=== PATIENT | male | born 1980 | race Caucasian/White ===

== ENCOUNTER 2017-01-06 11:47 | Emergency (ER) | payer BC, OTHER ==
[2017-01-06] MEDS ORDERED: IBUPROFEN 600 MG TABLET PO ONE (12:18)
--- NOTE | 2017-01-06 12:18 | Emergency Department Record ---
History of Present Illness - General Chief complaint: Cold Stated complaint: FEVER,CONGESTION,H/A Time Seen by Provider: 01/06/17 12:11 Source: Patient Mode of Arrival: Ambulatory Limitations: No limitations - History of Present Illness Initial comments: 36 yo male presents with sore throat, fever, and cough since . The cough has been productive but he has hot seen the sputum. NO NVD. NO rash. He is eating and drinking but the throat hurts to cough or swallow. No voice changes. He is a smoker. MD complaint: Sore throat, Other Onset/Timin -: Days(s) Location: Throat Severity: Moderate Severity scale (1-10): 7 Quality: Burning Consistency: Constant Improves with: None Worsens with: None Associated Symptoms: Pain with swallowing, Rhinorrhea, Sore throat - Related Data Previous Rx's Medication Instructions Recorded Azithromycin [Zithromax] 250 mg PO DAILY #6 tab 01/06/17 Allergies Allergy/AdvReac Type Severity Reaction Status Date / Time No Known Drug Allergies Allergy Verified 01/06/17 12:00 Travel Screening - Travel/Exposure Within Last 30 Days Have you traveled within the last 30 days?: No Review of Systems Constitutional: Reports: Fever. Denies: Chills, Malaise, Night sweats, Weakness Eyes: Denies: Eye discharge, Eye pain, Photophobia, Vision change ENT: Reports: Congestion, Throat pain. Denies: Epistaxis Respiratory: Reports: Cough. Denies: Dyspnea, Hemoptysis, Stridor, Wheezes Cardiovascular: Denies: Chest pain, Palpitations, Syncope Endocrine: Denies: Fatigue Gastrointestinal: Denies: Abdominal pain, Diarrhea, Nausea, Vomiting Genitourinary: Denies: Dysuria, Frequency Musculoskeletal: Denies: Arthralgia, Back pain, Myalgia, Neck pain Skin: Denies: Bruising, Change in color, Rash Neurological: Denies: Headache, Numbness, Weakness Psychiatric: Denies: Anxiety Hematological/Lymphatic: Denies: Blood Clots, Easy bleeding, Easy bruising, Swollen glands Past Medical History - SOCIAL HISTORY Smoking Status: Light tobacco smoker (<10/day) Alcohol Use: None Drug Use: None - RESPIRATORY Hx Respiratory Disorders: No - CARDIOVASCULAR Hx Cardio Disorders: No - NEURO Hx Neuro Disorders: No - GI Hx GI Disorders: No - Hx Genitourinary Disorders: No - ENDOCRINE Hx Endocrine Disorders: No - MUSCULOSKELETAL Hx Musculoskeletal Disorders: No - PSYCH Hx Psych Problems: No - HEMATOLOGY/ONCOLOGY Hx Hematology/Oncology Disorders: No Family Medical History Any Significant Family History?: No Physical Exam - General General Appearance: Alert, Oriented x3, Cooperative, No acute distress, Other ( No ill appearing, no acute distress) Limitations: No limitations - Head Head exam: Normal inspection - Eye Eye exam: Normal appearance. negative: Conjunctival injection, Periorbital swelling - ENT ENT exam: Mucous membranes moist, Normal external ear exam. negative: Mucous membranes dry, Normal orophraynx Ear exam: Normal external inspection. negative: External canal tenderness Nasal Exam: Normal inspection. negative: Discharge, Sinus tenderness Mouth exam: Normal external inspection, Tongue normal Teeth exam: Normal inspection. negative: Dental caries Throat exam: Tonsillar erythema, Tonsillomegaly, Other (no abascess, no shift). negative: Tonsillar exudate, R peritonsillar mass, L peritonsillar mass - Neck Neck exam: Normal inspection, Full ROM, Lymphadenopathy (mild anterior cervical soft and mobile) - Respiratory Respiratory exam: Decreased breath sounds (left greater than right). negative: Respiratory distress - Cardiovascular Cardiovascular Exam: Regular rate, Normal rhythm, Normal heart sounds - GI/Abdominal GI/Abdominal exam: Soft. negative: Tenderness - Rectal Rectal exam: Deferred - exam: Deferred - Extremities Extremities exam: Normal inspection, Full ROM, Normal capillary refill. negative: Pedal edema, Tenderness - Back Back exam: Reports: Normal inspection, Full ROM. Denies: Muscle spasm, Rash noted, Tenderness - Neurological Neurological exam: Alert, Normal gait, Oriented X3 - Psychiatric Psychiatric exam: Normal affect, Normal mood - Skin Skin exam: Dry, Intact, Normal color, Warm Course Vital Signs 01/06/17 11:52 Temperature 100.9 F H Pulse Rate 95 H Respiratory 20 Rate Blood Pressure 141/96 Pulse Ox 97 - Reevaluation(s) Reevaluation #1: Strep screen ordered and CXR 01/06/17 12:20 Reevaluation #2: The strep screen is negative 01/06/17 12:35 Reevaluation #3: The XR was reviewed by me No acute process 01/06/17 13:00 Disposition Disposition: Discharge Clinical Impression: Tonsillitis, Bronchitis Disposition: Home, Self-Care Condition: (1) Good Instructions: Acute Bronchitis (ED), Tonsillitis (ED) Additional Instructions: Rest and stay well hydrated Return in the next 1-3 days if not improving, or any new concerns Return immediately if worse, short of breath Tylenol or Motrin for fever or discomfort Zithromax as directed Prescriptions: Azithromycin [Zithromax] 250 mg PO DAILY #6 tab Forms: Patient Portal Access Time of Disposition: 13:02 Quality - Quality Measures Quality Measures: Upper Respiratory Infection - Blood Pressure Screening View Details: Yes Blood Pressure Classification: Hypertensive Reading Systolic Measurement: 141 Diastolic Measurement: 96 Screening for High Blood Pressure: < Pre-Hypertensive BP, F/U Documented > [ G8950] Pre-Hypertensive Follow-up Interventions: Referral to alternative/primary care provider.
[2017-01-06] MEDS ORDERED: DEXAMETHASONE SOD PHOSPHATE 10MG/ML VIAL PO ONE (12:22)
--- NOTE | 2017-01-08 13:11 | RADIOLOGY REPORT ---
EXAM: CHEST, TWO VIEWS HISTORY: COUGH. TECHNIQUE: Frontal and lateral views of the chest were obtained. Comparison: None. FINDINGS: The heart size is normal. The lungs are clear. No pneumothorax. IMPRESSION: NEGATIVE CHEST EXAMINATION. JOB NUMBER: [id number] MTDD
== END 2017-01-06 13:14 | disposition home or self-care (01) ==
LOC: ER 11:47
DX: J20.9 Acute bronchitis, unspecified (principal); J03.90 Acute tonsillitis, unspecified; F17.210 Nicotine dependence, cigarettes, uncomplicated
CPT/HCPCS: 99283 ×2; 87880; 71020; J1100

== ENCOUNTER 2017-01-14 21:30 | Emergency (ER) | payer OTHER ==
--- NOTE | 2017-01-14 21:53 | Emergency Department Record ---
History of Present Illness - General Chief complaint: Abscess Stated complaint: SWOLLEN LUMP ON BACK RT. KNEE Time Seen by Provider: 01/14/17 21:53 Source: Patient Mode of Arrival: Ambulatory - History of Present Illness Initial comments: Bump behind right knee which now has redness surrounding it. No f,c,cp, jarod, hx of DVT, PE, or clotting abnormalities. MD complaint: Lesion Onset/Timin -: Hour(s) Location: RLE Severity scale (1-10): 4 Consistency: Constant Improves with: None Worsens with: Palpation Context: None Associated symptoms: Denies other symptoms Treatments Prior to Arrival: None - Related Data Previous Rx's Medication Instructions Recorded Cephalexin [Keflex] 500 mg PO QID #39 cap 01/14/17 Allergies Allergy/AdvReac Type Severity Reaction Status Date / Time No Known Drug Allergies Allergy Verified 01/06/17 12:00 Travel Screening - Travel/Exposure Within Last 30 Days Have you traveled within the last 30 days?: No - Travel Symptoms Symptom Screening: None Review of Systems Reviewed: No additional complaints except as noted below Constitutional: Reports: As per HPI. Denies: Chills, Fever, Malaise, Night sweats, Weakness, Weight change Eyes: Reports: As per HPI. Denies: Eye discharge, Eye pain, Photophobia, Vision change ENT: Reports: As per HPI. Denies: Congestion, Dental pain, Ear pain, Epistaxis , Hearing loss, Throat pain Respiratory: Reports: As per HPI. Denies: Cough, Dyspnea, Hemoptysis, Stridor, Wheezes Cardiovascular: Reports: As per HPI. Denies: Arrhythmia, Chest pain, Dyspnea on exertion, Edema, Murmurs, Orthopnea, Palpitations, Paroxysmal nocturnal dyspnea, Rheumatic Fever, Syncope Endocrine: Reports: As per HPI. Denies: Fatigue, Heat or cold intolerance, Polydipsia, Polyuria Gastrointestinal: Reports: As per HPI. Denies: Abdominal pain, Constipation, Diarrhea, Hematemesis, Hematochezia, Melena, Nausea, Vomiting Genitourinary: Reports: As per HPI. Denies: Dysuria, Frequency, Hematuria, Incontinence, Retention, Testicular pain, Testicular mass, Urgency Musculoskeletal: Reports: As per HPI. Denies: Arthralgia, Back pain, Gout, Joint swelling, Myalgia, Neck pain Skin: Reports: As per HPI. Denies: Bruising, Change in color, Change in hair/ nails, Lesions, Pruritus, Rash Neurological: Reports: As per HPI. Denies: Abnormal gait, Confusion, Headache, Numbness, Paresthesias, Seizure, Tingling, Tremors, Vertigo, Weakness Psychiatric: Reports: As per HPI. Denies: Anxiety, Auditory hallucinations, Depression, Homicidal thoughts, Suicidal thoughts, Visual hallucinations Hematological/Lymphatic: Reports: As per HPI. Denies: Anemia, Blood Clots, Easy bleeding, Easy bruising, Swollen glands Past Medical History - SOCIAL HISTORY Smoking Status: Light tobacco smoker (<10/day) - RESPIRATORY Hx Respiratory Disorders: No - CARDIOVASCULAR Hx Cardio Disorders: No - NEURO Hx Neuro Disorders: No - GI Hx GI Disorders: No - Hx Genitourinary Disorders: No - ENDOCRINE Hx Endocrine Disorders: No - MUSCULOSKELETAL Hx Musculoskeletal Disorders: No - PSYCH Hx Psych Problems: No - HEMATOLOGY/ONCOLOGY Hx Hematology/Oncology Disorders: No Family Medical History Any Significant Family History?: Yes Hx Cancer: Father, Mother, Grandparents Hx Diabetes: Grandparents Hx Heart Disease: Father Hx HTN: Mother *HTN Comment: high cholesterol Physical Exam - General General Appearance: Alert, Oriented x3, Cooperative, No acute distress - Head Head exam: Normal inspection - Eye Eye exam: Normal appearance, PERRL Pupils: Normal accommodation - ENT ENT exam: Normal exam, Mucous membranes moist, Normal external ear exam, Normal orophraynx, TM's normal bilaterally Ear exam: Normal external inspection. negative: External canal tenderness Nasal Exam: Normal inspection. negative: Discharge, Sinus tenderness Mouth exam: Normal external inspection, Tongue normal Teeth exam: Normal inspection. negative: Dental caries Throat exam: Normal inspection. negative: Tonsillar erythema, Tonsillar exudate - Neck Neck exam: Normal inspection, Full ROM. negative: Tenderness - Respiratory Respiratory exam: Normal lung sounds bilaterally. negative: Respiratory distress - Cardiovascular Cardiovascular Exam: Regular rate, Normal rhythm, Normal heart sounds - GI/Abdominal GI/Abdominal exam: Soft, Normal bowel sounds. negative: Tenderness - Rectal Rectal exam: Deferred - exam: Deferred - Extremities Extremities exam: Normal inspection, Full ROM, Normal capillary refill, Tenderness (tender tiny firm blue tinged sport behind right knee in region of multiple superficial varicosities. ? vein valve of superficial phlebitis vs. cellulitis localized around patellar space. No calf tenderness, no proximal lymphangitis.) - Back Back exam: Reports: Normal inspection, Full ROM. Denies: Muscle spasm, Rash noted, Tenderness - Neurological Neurological exam: Alert, Normal gait, Oriented X3, Reflexes normal - Psychiatric Psychiatric exam: Normal affect, Normal mood - Skin Skin exam: Dry, Intact, Normal color, Warm Course Vital Signs 01/14/17 21:36 Temperature 98.8 F Pulse Rate [ 65 Pulse Ox Probe] Respiratory 18 Rate Blood Pressure 142/89 [Left Arm] Pulse Ox 96 Medical Decision Making - Management Options MDM Management: No Additional Work-up Planned Disposition Disposition: Discharge Clinical Impression: Cellulitis of right lower leg Disposition: Home, Self-Care Condition: (1) Good Instructions: Cellulitis (ED), Superficial Thrombophlebitis (ED) Additional Instructions: Elevate leg above heart. Off work tomorrow, 01-15-17. Motrin 800 three times daily with food. Keflex 500 mg every 6 hours for 10 days until gone. Warm soaks to leg two to three times daily. Follow up with PCP this week for recheck of leg. Prescriptions: Cephalexin [Keflex] 500 mg PO QID #39 cap Quality - Quality Measures Quality Measures: N/A - Blood Pressure Screening Blood Pressure Classification: Pre-Hypertensive BP Reading Systolic Measurement: 142 Diastolic Measurement: 89 Screening for High Blood Pressure: < Pre-Hypertensive BP, F/U Documented > [ G8950] Pre-Hypertensive Follow-up Interventions: Follow-up with rescreen every year., Referral to alternative/primary care provider.
[2017-01-14] MEDS ORDERED: CEPHALEXIN 500 MG CAPSULE PO STA ×2 (22:01→22:02)
[2017-01-14] MEDS ORDERED: IBUPROFEN 200 MG TABLET PO ONE (22:02)
[2017-01-14] MEDS ORDERED: IBUPROFEN 400 MG TABLET PO ONE (22:09)
== END 2017-01-14 22:25 | disposition home or self-care (01) ==
LOC: ER 21:30
DX: L03.115 Cellulitis of right lower limb (principal)
CPT/HCPCS: 99282

== ENCOUNTER 2019-06-03 17:22 | Emergency (ER) | payer BC, OTHER ==
--- NOTE | 2019-06-03 17:32 | Emergency Department Record ---
History of Present Illness - General Chief complaint: Extremity Problem Stated complaint: RT LOWER LEG FOOT PAIN/SWELLING Time Seen by Provider: 06/03/19 17:28 Source: Patient Mode of Arrival: Ambulatory Limitations: No limitations - History of Present Illness Initial comments: 39 yo male presents with right calf pain and swelling. He denies any injury. The pain started lower in the leg and now is up the calf. No warmth, no redness, no known injury. He denies any history of DVT. He has had superficial phlebitis in the past. No cough, chest pain, fever, nausea, vomiting or other changes in his health. PCP is Dr Melo Molina. Complaint: Extremity pain, Extremity swelling -: Days(s) (5) Location: Right, Lower Leg History of Same: No -: Yes Myalgia Radiation: Distal Quality: Aching Consistency: Constant Improves with: Nothing Worsens with: Palpation, Walking Associated Symptoms: Denies other symptoms - Related Data Home Medications Medication Instructions Recorded Confirmed Last Taken Omeprazole [Prilosec] 20 mg PO DAILY 06/03/19 06/03/19 06/03/19 Previous Rx's Medication Instructions Recorded Apixaban [Eliquis] 5 mg PO BID #74 tablet 06/03/19 Allergies Allergy/AdvReac Type Severity Reaction Status Date / Time No Known Drug Allergies Allergy Verified 06/03/19 17:27 Review of Systems Constitutional: Denies: Chills, Fever, Malaise, Weakness Eyes: Denies: Eye discharge ENT: Denies: Congestion, Throat pain Respiratory: Denies: Cough, Dyspnea, Hemoptysis, Wheezes Cardiovascular: Denies: Chest pain, Palpitations, Syncope Endocrine: Denies: Fatigue Gastrointestinal: Denies: Abdominal pain, Diarrhea, Nausea, Vomiting Genitourinary: Denies: Dysuria, Frequency, Hematuria Musculoskeletal: Reports: Myalgia. Denies: Arthralgia, Back pain Skin: Denies: Bruising, Change in color, Rash Neurological: Denies: Headache Psychiatric: Denies: Anxiety Hematological/Lymphatic: Denies: Easy bleeding, Easy bruising Past Medical History - SOCIAL HISTORY Smoking Status: Light tobacco smoker (<10/day) Drug Use: None - RESPIRATORY Hx Respiratory Disorders: No - CARDIOVASCULAR Hx Cardio Disorders: No - NEURO Hx Neuro Disorders: No - GI Hx GI Disorders: No - Hx Genitourinary Disorders: No - ENDOCRINE Hx Endocrine Disorders: No - MUSCULOSKELETAL Hx Musculoskeletal Disorders: No - PSYCH Hx Psych Problems: No - HEMATOLOGY/ONCOLOGY Hx Hematology/Oncology Disorders: No Family Medical History Hx Cancer: Father, Mother, Grandparents Hx Diabetes: Grandparents Hx Heart Disease: Father Hx HTN: Mother *HTN Comment: high cholesterol Physical Exam - General General Appearance: Alert, Oriented x3, Cooperative, No acute distress Limitations: No limitations - Head Head exam: Atraumatic, Normal inspection - Eye Eye exam: Normal appearance. negative: Conjunctival injection - ENT ENT exam: Normal exam Ear exam: Normal external inspection Nasal Exam: Normal inspection Mouth exam: Normal external inspection - Neck Neck exam: Normal inspection - Respiratory Respiratory exam: Normal lung sounds bilaterally. negative: Respiratory distress - Cardiovascular Cardiovascular Exam: Regular rate, Normal rhythm, Normal heart sounds Peripheral Pulses: 2+: Dorsalis Pedis (R) - Rectal Rectal exam: Deferred - exam: Deferred - Extremities Extremities exam: Calf tenderness, Full ROM, Normal capillary refill, Tenderness. negative: Joint swelling - Back Back exam: Denies: CVA tenderness (R), CVA tenderness (L) - Neurological Neurological exam: Alert, Oriented X3 - Psychiatric Psychiatric exam: Normal affect, Normal mood. negative: Agitated, Anxious - Skin Skin exam: Intact, Normal color. negative: Abrasion, Cyanosis, Diaphoretic, Erythema, Pallor, Petechiae, Rash, Urticaria, Vesicles, Warm Course - Reevaluation(s) Reevaluation #1: 06/03/19 19:31 US demonstrated a segment of the R posterior tib vein with DVT The patient was given a dose of Eliquis in the ED He was started on 10mg bid for one week and then instructed to change to 5mg bid We discussed concerns to monitor for (bleeding, chest pain, cough, short of breath) Dr Melo Molina was paged to notify him regarding his patient Disposition Disposition: Discharge Clinical Impression: DVT (deep venous thrombosis) Disposition: Home, Self-Care Condition: (1) Good Instructions: Deep Vein Thrombosis Prevention (ED), Apixaban (By mouth) Additional Instructions: Call your doctor tomorrow for a follow up office visit regarding the right sided calf DVT Take the copy of the report you were given to the office visit You will start Eliquis twice daily for the DVT You will be on 10mg twice a day for one week then switch to 5mg twice a day until your doctor tells you it is safe to stop Return or be seen if you have bleeding, cough, chest pain or shortness of breath. Prescriptions: Apixaban [Eliquis] 5 mg PO BID #74 tablet Forms: Patient Portal Access Time of Disposition: 19:30 Quality - Quality Measures Quality Measures: N/A - Blood Pressure Screening Does Patient Have Any of the Following: No Blood Pressure Classification: Hypertensive Reading Systolic Measurement: 147 Diastolic Measurement: 75 Screening for High Blood Pressure: < Pre-Hypertensive BP, F/U Documented > [G8950] Pre-Hypertensive Follow-up Interventions: Referral to alternative/primary care provider.
--- NOTE | 2019-06-03 19:18 | ULTRASOUND REPORT ---
EXAMINATION: Right Lower Extremity Venous Duplex Doppler Ultrasound EXAM DATE: 06/03/2019 6:33 PM TECHNIQUE: Real-time B-mode imaging with and without compression was used to evaluate the right lowe r extremity for deep venous thrombosis (DVT). Duplex Doppler with color and spectral Doppler was use d. INDICATION: pain and swelling 5-6 days COMPARISON: Right lower extremity venous ultrasound 01/17/2017. FINDINGS: Right Common Femoral Vein: No DVT. Right Femoral Vein: No DVT. Right Popliteal Vein: No DVT. Right Proximal Deep Femoral Vein: No DVT. Right Posterior Tibial Veins: The more posteriorly positioned right posterior tibial vein does not de monstrate compressibility or color flow compatible with segmental posterior tibial vein DVT Right Peroneal Veins: No DVT. Right proximal Great Saphenous Vein: No thrombus. Duplex Doppler: Spectral Doppler waveforms show normal respiratory phasicity in the common femoral vein. Additional Findings: The left external iliac, common femoral and proximal greater saphenous vein are normal. IMPRESSION: Findings compatible with segmental right posterior tibial vein DVT. Dictated by: Aditya Robert MD on 06/03/2019 7:09 PM. .
[2019-06-03] MEDS ORDERED: APIXABAN 5MG TABLET PO ONE (19:20)
== END 2019-06-03 19:46 | disposition home or self-care (01) ==
LOC: ER 17:22
DX: I82.441 Acute embolism and thrombosis of right tibial vein (principal); F17.210 Nicotine dependence, cigarettes, uncomplicated
CPT/HCPCS: 99284

== ENCOUNTER 2019-07-29 22:44 | Observation (INO) | payer BC ==
[2019-07-29] MEDS ORDERED: ONDANSETRON 4 MG ODT TABLET SL ONE (22:49)
[2019-07-29] MEDS ORDERED: MORPHINE SULFATE 5 MG/ML VIAL IVP ONE (22:49)
[2019-07-29] MEDS ORDERED: ONDANSETRON HCL IV 4 MG/2 ML VIAL IVP ONE (22:55)
--- NOTE | 2019-07-29 22:55 | Emergency Department Record ---
History of Present Illness - General Chief Complaint: Chest Pain Stated Complaint: CHEST PAIN Time Seen by Provider: 07/29/19 22:47 Source: Patient, EMS Mode of Arrival: EMS Limitations: No limitations - History of Present Illness Initial Comments: 39 yo male presents to ED for evaluation of palpitations, chest discomfort that began this evening. Patient reports similar symptoms several weeks ago diagnosed as hypokalemia, denies fevers, chills, or recent illness. Patient does report recent diagnosis of DVT, was started on Eliquis approximately 8 w eeks ago here in the ED. Patient denies history of HTN, hypercholesterolemia, or previous CAD. Patient was given Nitro ECHOCARDIOGRAPH TECH without improvement in hsi symptoms, was also given ASA 324 mg prior to arrival. MD Complaint: Chest pain Onset/Timin -: Hour(s) Pain Location: Substernal Pain Radiation: None Severity: Moderate Quality: Aching Consistency: Constant Improves With: Nothing Worsens With: Nothing Treatments Prior to Arrival: Aspirin, Nitroglycerin - Related Data Previous Rx's Medication Instructions Recorded Apixaban [Eliquis] 5 mg PO BID #74 tablet 06/03/19 Allergies Allergy/AdvReac Type Severity Reaction Status Date / Time No Known Drug Allergies Allergy Verified 06/03/19 17:27 Review of Systems Constitutional: Denies: Chills, Fever, Malaise, Night sweats Eyes: Denies: Eye discharge, Eye pain ENT: Denies: Congestion, Ear pain, Epistaxis Respiratory: Denies: Cough, Dyspnea Cardiovascular: Reports: Chest pain. Denies: Dyspnea on exertion Endocrine: Denies: Fatigue, Heat or cold intolerance Gastrointestinal: Denies: Abdominal pain, Nausea, Vomiting Genitourinary: Denies: Incontinence, Retention Musculoskeletal: Denies: Arthralgia, Back pain Skin: Denies: Bruising, Change in color Neurological: Denies: Abnormal gait, Confusion, Headache, Seizure Psychiatric: Denies: Anxiety Hematological/Lymphatic: Denies: Anemia, Blood Clots Past Medical History - SOCIAL HISTORY Smoking Status: Never smoker Alcohol Use: None Drug Use: Occasional Drug Use Detail:: Marijuana - RESPIRATORY Hx Respiratory Disorders: No - CARDIOVASCULAR Hx Cardio Disorders: Yes Hx Deep Vein Thrombosis: Yes (06/2019) - NEURO Hx Neuro Disorders: No - GI Hx GI Disorders: No - Hx Genitourinary Disorders: No - ENDOCRINE Hx Endocrine Disorders: No - MUSCULOSKELETAL Hx Musculoskeletal Disorders: No - PSYCH Hx Psych Problems: No - HEMATOLOGY/ONCOLOGY Hx Hematology/Oncology Disorders: No Family Medical History Any Significant Family History?: Yes Hx Cancer: Father, Mother, Grandparents Hx Diabetes: Grandparents Hx Heart Disease: Father Hx HTN: Mother *HTN Comment: high cholesterol Physical Exam - General General Appearance: Alert, Oriented x3, Cooperative, Mild distress, Anxious Limitations: No limitations - Head Head exam: Atraumatic, Normocephalic, Normal inspection Head exam detail: negative: Abrasion, Contusion, Mcintyre's sign, General tenderness, Hematoma, Laceration - Eye Eye exam: Normal appearance. negative: Conjunctival injection, Periorbital swelling, Periorbital tenderness, Scleral icterus - ENT Ear exam: negative: Auricular hematoma, Auricular trauma Nasal Exam: negative: Active bleeding, Discharge, Dried blood, Foreign body Mouth exam: negative: Drooling, Laceration, Muffled voice, Tongue elevation - Neck Neck exam: Normal inspection. negative: Meningismus, Tenderness - Respiratory Respiratory exam: Normal lung sounds bilaterally. negative: Rales, Respiratory distress, Rhonchi, Stridor - Cardiovascular Cardiovascular Exam: Normal rhythm, Normal heart sounds, Tachycardia - GI/Abdominal GI/Abdominal exam: Soft. negative: Rebound, Rigid, Tenderness - Rectal Rectal exam: Deferred - exam: Deferred - Extremities Extremities exam: Normal inspection. negative: Pedal edema, Tenderness - Back Back exam: Denies: CVA tenderness (R), CVA tenderness (L) - Neurological Neurological exam: Alert, Normal gait, Oriented X3 - Psychiatric Psychiatric exam: Anxious - Skin Skin exam: Normal color. negative: Abrasion Type of lesion: negative: abrasion Course Vital Signs 07/29/19 22:47 Pulse Rate [ 100 H Pulse Ox Probe] Respiratory 28 H Rate Blood Pressure 141/75 [Right Arm] Pulse Ox 98 - Reevaluation(s) Reevaluation #1: 07/29/19 22:54 EKG: Sinus tachycardia 111 Normal axis, normal intervals No acute ST-T wave changes Reevaluation #2: 07/29/19 23:21 Laboratory studies were reviewed and appear grossly unremarkable for an acute process. D-Dimer negative. Patient was reassessed, pulse down to 85. Will obtain CXR as the patient's D-Dimer is negative and plan on admission for c ardiology consultation. Reevaluation #3: 07/29/19 23:57 CXR: No acute process Patient and his SO were updated on all results, will admit for further evaluation. Reevaluation #4: 07/30/19 06:37 Case was discussed with Yakelin Mccormick NP, will accept admission at this time. Medical Decision Making - Lab Data Result diagrams: 07/29/19 22:50 07/29/19 22:50 Disposition Disposition: Admit Clinical Impression: Atypical chest pain Disposition: Still a Patient at [facility] Decision to Admit: Admit from ER Decision to Admit Date: 07/29/19 Decision to Admit Time: 23:58 Condition: (2) Stable Time of Disposition: 23:58 Quality - Quality Measures Quality Measures: N/A - Blood Pressure Screening Does Patient Have Any of the Following: No Blood Pressure Classification: Pre-Hypertensive BP Reading Systolic Measurement: 127 Diastolic Measurement: 70 Screening for High Blood Pressure: < Pre-Hypertensive BP, F/U Documented > [[id number]] Pre-Hypertensive Follow-up Interventions: Referral to alternative/primary care provider.
[2019-07-29] MEDS ORDERED: 0.9 % SODIUM CHLORIDE 1000ML 1,000 ML IV SCH (23:00)
[2019-07-29 23:01] LABS: ABSOLUTE NEUTROPHIL COUNT 3.37; BASO % 0.3 % (0-6); EOS % 1.8 % (0-6); GRAN % 46.9 % (47-80); HEMATOCRIT 41.7 % (42.0-52.0); HEMOGLOBIN 13.7 gm/dl (14.0-18.0); LYMPH % 39.6 % (16-45); MEAN CELL VOLUME 90.5 fl (81-97); MEAN CORPUSCULAR HEMOGLOBIN 29.7 pg (27-33); MEAN CORPUSCULAR HGB CONC 32.9 g/dl (32-36); MEAN PLATELET VOLUME 9.8 fl (7.4-10.4); MONO % 11.4 % (0-9); PLATELET COUNT 239 K/uL (130-400); RED BLOOD COUNT 4.61 M/uL (4.40-5.70); RED CELL DISTRIBUTION WIDTH 12.7 % (11.5-14.5); WHITE BLOOD COUNT W/O DIFF 7.2 K/uL (4.2-12.2)
[2019-07-29 23:11] LABS: BLOOD UREA NITROGEN 10 mg/dL (6-20); CREATININE 0.9 mg/dL (0.7-1.2); EST GLOMERULAR FILTRATION RATE > 60 mL/min
[2019-07-29 23:12] LABS: TOTAL PROTEIN 7.1 g/dL (6.6-8.7)
[2019-07-29 23:14] LABS: GLUCOSE,RANDOM 138 mg/dL (74-109)
[2019-07-29 23:16] LABS: ALT/SGPT 21 U/L (<41); AST/SGOT 18 U/L (10.0-50.0)
[2019-07-29 23:17] LABS: ALB/GLOB RATIO 1.7 (1.1-1.8); ALBUMIN 4.5 g/dL (4.0-5.0); ALKALINE PHOSPHATASE 84 U/L (40-129)
--- NOTE | 2019-07-30 00:05 | RADIOLOGY REPORT ---
EXAMINATION: Single View Chest EXAM DATE: 07/29/2019 11:56 PM TECHNIQUE: Single view chest INDICATION: chest pain COMPARISON: Chest x-ray 01/06/2017 ENCOUNTER: Not applicable FINDINGS: The heart, mediastinum, and pulmonary vasculature are normal. No lung consolidation or pleural effu sions are present. No pneumothorax is present. IMPRESSION: No acute cardiopulmonary disease is present. Dictated by: Leonidas Nicole MD on 07/30/2019 12:00 AM. .
[2019-07-30] MEDS ORDERED: SOD CHLOR 0.9% WITH KCL 40MEQ 40 MEQ/1,000 ML IV.SOLN IV ONE (01:32)
[2019-07-30 09:33] LABS: C-REACTIVE PROTEIN 0.07 mg/dL (<0.5)
[2019-07-30] MEDS ORDERED: ASPIRIN 325 MG TAB ENTERIC-COATED PO SCH (10:00)
[2019-07-30] MEDS ORDERED: APIXABAN 5MG TABLET PO SCH (10:00)
[2019-07-30] MEDS ORDERED: PANTOPRAZOLE SODIUM 40 MG TABLET PO SCH (10:00)
--- NOTE | 2019-07-30 13:47 | History & Physical ---
History of Present Illness - Date of Service Date of Service for History & Physical: 07/30/19 - History of Present Illness Admitting Diagnosis: Atypical chest pain History of Present Illness: 39 yo male presents to ED for evaluation of palpitations, chest discomfort that began this evening. Patient reports similar symptoms several weeks ago diagnosed as hypokalemia, denies fevers, chills, or recent illness. Patient does report recent diagnosis of DVT, was started on Eliquis approximately 8 weeks ago here in the ED. Patient states the 2 episodes have happened after starting Eliquis. Patient denies history of HTN, hypercholesterolemia, or previous CAD. Patient was given Nitro [employer]SULT[employer] without improvement in hsi symptoms, was also given ASA 324 mg prior to arrival. He does have hx GERD, takes PPI intermittently. Has never had EGD. Reports last meal was his usual dinner meal of baked chicken, green beans and mashed potatoes. Does admit to family hx of father age 63 from CHF and mother has HTN and is alive. Does have 20 year cigarette use history and quit 2 years ago but does intermittently smoke marijuana. Did not 6 weeks ago and yesterday prior to the sudden onset of rapid heart beats, mid sternal chest pressure. Denies diaphoresis, radiating chest pain, syncope. ED work up unremarkable with the exception of K 3.2. No recent diarrhea or vomiting, diuretic use. PCP: Dr Jarred Molina PAST MEDICAL/SURGICAL HISTORY Past Surgical History appendectomy PMH - Respiratory Hx Respiratory Disorders No PMH - Cardiovascular Hx Cardiovascular Disorders Yes Hx Deep Vein Thrombosis Yes: 06/2019 PMH - Neuro Hx Neurological Disorders No PMH - GI Hx Gastrointestinal Disorders No PMH - Hx Genitourinary Disorders No PMH - Endocrine Hx Endocrine Disorders No PMH - Musculoskeletal Hx Musculoskeletal Disorders No PMH - Psych Hx Psychiatric Problems No PMH - Hematology/Oncology Hx Hematology/Oncology No Disorders Laboratory Results WBC 7.2 K/uL (4.2-12.2) 07/29/19 22:50 RBC 4.61 M/uL (4.40-5.70) 07/29/19 22:50 Hgb 13.7 gm/dl (14.0-18.0) L 07/29/19 22:50 Hct 41.7 % (42.0-52.0) L 07/29/19 22:50 MCV 90.5 fl (81-97) 07/29/19 22:50 MCH 29.7 pg (27-33) 07/29/19 22:50 MCHC 32.9 g/dl (32-36) 07/29/19 22:50 RDW 12.7 % (11.5-14.5) 07/29/19 22:50 Plt Count 239 K/uL (130-400) 07/29/19 22:50 MPV 9.8 fl (7.4-10.4) 07/29/19 22:50 Gran % 46.9 % (47-80) L 07/29/19 22:50 Lymphocytes % 39.6 % (16-45) 07/29/19 22:50 Monocytes % 11.4 % (0-9) H 07/29/19 22:50 Eosinophils % 1.8 % (0-6) 07/29/19 22:50 Basophils % 0.3 % (0-6) 07/29/19 22:50 Absolute Neutrophils 3.37 07/29/19 22:50 ESR 2 mm/hr (0-15) 07/30/19 06:50 D-Dimer < 0.19 mg/L FEU (0-0.59) 07/29/19 22:50 Sodium 140 mmol/L (136-145) 07/29/19 22:50 Potassium 3.2 mmol/L (3.4-4.5) L 07/29/19 22:50 Chloride 99 mmol/L (98-107) 07/29/19 22:50 Carbon Dioxide 26.0 mmol/L (22-29) 07/29/19 22:50 Anion Gap 15.0 (7-16) 07/29/19 22:50 BUN 10 mg/dL (6-20) 07/29/19 22:50 Creatinine 0.9 mg/dL (0.7-1.2) 07/29/19 22:50 Estimated GFR > 60 mL/min 07/29/19 22:50 Random Glucose 138 mg/dL (74-109) H 07/29/19 22:50 Calcium 9.3 mg/dL (8.6-10.0) 07/29/19 22:50 Total Bilirubin 0.30 mg/dL (0.2-1.0) 07/29/19 22:50 AST 18 U/L (10.0-50.0) 07/29/19 22:50 ALT 21 U/L (<41) 07/29/19 22:50 Alkaline Phosphatase 84 U/L (40-129) 07/29/19 22:50 Troponin T < 0.010 ng/mL (0-0.010) 07/30/19 06:50 C-Reactive Protein 0.07 mg/dL (<0.5) 07/30/19 06:50 Total Protein 7.1 g/dL (6.6-8.7) 07/29/19 22:50 Albumin 4.5 g/dL (4.0-5.0) 07/29/19 22:50 Globulin 2.6 gm/dL (1.4-4.8) 07/29/19 22:50 Albumin/Globulin Ratio 1.7 (1.1-1.8) 07/29/19 22:50 Amylase 113 U/L (28-100) H 07/30/19 06:50 Lipase 183 U/L (13-60) H 07/30/19 06:50 Vital Signs - Last 24 Hrs Temp Pulse Resp BP Pulse Ox 07/30/19 10:32 99.1 F 59 L 16 125/74 96 07/30/19 09:00 59 L 16 07/30/19 05:00 97.7 F 86 18 127/70 96 07/30/19 01:32 97.7 F 84 18 124/72 97 07/30/19 00:03 84 18 140/70 99 07/29/19 23:24 88 20 151/75 100 07/29/19 22:47 98.8 F 100 H 28 H 141/75 98 07/30/19- Resting in bed comfortably, denies any chest pain, rapid heart rate. Reports feeling better after starting IVF with potassium Travel Screening - Travel/Exposure Within Last 30 Days Have you traveled within the last 30 days?: Yes Location Detail:: [place] - Travel/Exposure Within Last Year Have you traveled outside the [place] in the last year?: No - Additonal Travel Details Have you been exposed to anyone with a communicable illness?: No - Travel Symptoms Symptom Screening: None Review of Systems Constitutional: Denies: Chills, Fever, Malaise, Night sweats Eyes: Denies: Eye discharge, Eye pain ENT: Denies: Congestion, Ear pain, Epistaxis Respiratory: Denies: Cough, Dyspnea Cardiovascular: Reports: Chest pain. Denies: Dyspnea on exertion Endocrine: Denies: Fatigue, Heat or cold intolerance Gastrointestinal: Denies: Abdominal pain, Nausea, Vomiting Genitourinary: Denies: Incontinence, Retention Musculoskeletal: Denies: Arthralgia, Back pain Skin: Denies: Bruising, Change in color Neurological: Denies: Abnormal gait, Confusion, Headache, Seizure Psychiatric: Denies: Anxiety Hematological/Lymphatic: Denies: Anemia, Blood Clots Past Medical History - SOCIAL HISTORY Smoking Status: Never smoker Alcohol Use: None Drug Use: Occasional Drug Use Detail:: Marijuana - RESPIRATORY Hx Respiratory Disorders: No - CARDIOVASCULAR Hx Cardio Disorders: Yes Hx Deep Vein Thrombosis: Yes (06/2019) - NEURO Hx Neuro Disorders: No - GI Hx GI Disorders: No - Hx Genitourinary Disorders: No - ENDOCRINE Hx Endocrine Disorders: No - MUSCULOSKELETAL Hx Musculoskeletal Disorders: No - PSYCH Hx Psych Problems: No - HEMATOLOGY/ONCOLOGY Hx Hematology/Oncology Disorders: No Family Medical History Any Significant Family History?: Yes Hx Cancer: Father, Mother, Grandparents Hx Diabetes: Grandparents Hx Heart Disease: Father Hx HTN: Mother *HTN Comment: high cholesterol H&P Meds/Allergies - Allergies Allergies: Allergies Allergy/AdvReac Type Severity Reaction Status Date / Time No Known Drug Allergies Allergy Verified 06/03/19 17:27 - Home Medications Previous Rx's Medication Instructions Recorded Apixaban [Eliquis] 5 mg PO BID #74 tablet 06/03/19 - Active Medications Active Medications: Current Medications Apixaban (Eliquis) 5 mg PO BID [facility] Last Admin: 07/30/19 10:16 Dose: 5 mg Documented by: Aspirin (Ecotrin (Ec)) 325 mg PO DAILY [facility] Last Admin: 07/30/19 10:16 Dose: 325 mg Documented by: Sodium Chloride () 1,000 mls @ 0 mls/hr IV .Q0M [facility] Last Infusion: 07/30/19 00:09 Dose: Infused Documented by: Pantoprazole Sodium (Protonix) 40 mg PO DAILY [facility] Last Admin: 07/30/19 10:15 Dose: 40 mg Documented by: Potassium Chloride (Klor-Con) 10 meq PO BID [facility] Physical Exam - Vital Signs Vital Signs: Vital Signs - Last 24 Hrs Temp Pulse Resp BP Pulse Ox 07/30/19 10:32 99.1 F 59 L 16 125/74 96 07/30/19 09:00 59 L 16 07/30/19 05:00 97.7 F 86 18 127/70 96 07/30/19 01:32 97.7 F 84 18 124/72 97 07/30/19 00:03 84 18 140/70 99 07/29/19 23:24 88 20 151/75 100 07/29/19 22:47 98.8 F 100 H 28 H 141/75 98 - General General Appearance: Alert, Oriented x3, Cooperative, No acute distress Limitations: No limitations - Head Head exam: Atraumatic, Normocephalic, Normal inspection Head exam detail: negative: Abrasion, Contusion, Mcintyre's sign, General tenderness, Hematoma, Laceration - Eye Eye exam: Normal appearance. negative: Conjunctival injection, Periorbital swelling, Periorbital tenderness, Scleral icterus - ENT ENT exam: Mucous membranes moist Ear exam: negative: Auricular hematoma, Auricular trauma Nasal Exam: negative: Active bleeding, Discharge, Dried blood, Foreign body Mouth exam: negative: Drooling, Laceration, Muffled voice, Tongue elevation - Neck Neck exam: Normal inspection. negative: Meningismus, Tenderness - Respiratory Respiratory exam: Normal lung sounds bilaterally. negative: Rales, Respiratory distress, Rhonchi, Stridor - Cardiovascular Cardiovascular Exam: Normal rhythm, Normal heart sounds, Other (no chest wall tenderness to palpation) - GI/Abdominal GI/Abdominal exam: Soft. negative: Rebound, Rigid, Tenderness - Rectal Rectal exam: Deferred - exam: Deferred - Extremities Extremities exam: Normal inspection. negative: Pedal edema, Tenderness - Back Back exam: Denies: CVA tenderness (R), CVA tenderness (L) - Neurological Neurological exam: Alert, Normal gait, Oriented X3 - Psychiatric Psychiatric exam: Normal affect, Normal mood - Skin Skin exam: Normal color. negative: Abrasion Type of lesion: negative: abrasion Results - Labs Result Diagrams: 07/29/19 22:50 07/29/19 22:50 Labs Last 24 Hours: Laboratory Results - last 24 hr 07/29/19 07/29/19 07/29/19 22:50 22:50 22:50 WBC 7.2 RBC 4.61 Hgb 13.7 L Hct 41.7 L MCV 90.5 MCH 29.7 MCHC 32.9 RDW 12.7 Plt Count 239 MPV 9.8 Gran % 46.9 L Lymphocytes % 39.6 Monocytes % 11.4 H Eosinophils % 1.8 Basophils % 0.3 Absolute Neutrophils 3.37 ESR D-Dimer < 0.19 Sodium 140 Potassium 3.2 L Chloride 99 Carbon Dioxide 26.0 Anion Gap 15.0 BUN 10 Creatinine 0.9 Estimated GFR > 60 Random Glucose 138 H Calcium 9.3 Total Bilirubin 0.30 AST 18 ALT 21 Alkaline Phosphatase 84 Troponin T < 0.010 C-Reactive Protein Total Protein 7.1 Albumin 4.5 Globulin 2.6 Albumin/Globulin Ratio 1.7 Amylase Lipase 07/30/19 07/30/19 07/30/19 06:50 06:50 06:50 WBC RBC Hgb Hct MCV MCH MCHC RDW Plt Count MPV Gran % Lymphocytes % Monocytes % Eosinophils % Basophils % Absolute Neutrophils ESR 2 D-Dimer Sodium Potassium Chloride Carbon Dioxide Anion Gap BUN Creatinine Estimated GFR Random Glucose Calcium Total Bilirubin AST ALT Alkaline Phosphatase Troponin T < 0.010 C-Reactive Protein Total Protein Albumin Globulin Albumin/Globulin Ratio Amylase Lipase 183 H 07/30/19 06:50 WBC RBC Hgb Hct MCV MCH MCHC RDW Plt Count MPV Gran % Lymphocytes % Monocytes % Eosinophils % Basophils % Absolute Neutrophils ESR D-Dimer Sodium Potassium Chloride Carbon Dioxide Anion Gap BUN Creatinine Estimated GFR Random Glucose Calcium Total Bilirubin AST ALT Alkaline Phosphatase Troponin T C-Reactive Protein 0.07 Total Protein Albumin Globulin Albumin/Globulin Ratio Amylase 113 H Lipase VTE H&P Assessment - Risk for VTE Risk for VTE: Yes Risk Level: Moderate Risk Assessment Date: 07/30/19 Risk Assessment Time: 14:06 VTE Orders Placed or Will Be Placed: Yes Plan - Detailed Diagnosis and Plan (1) Atypical chest pain Current Visit: Yes Status: Acute Base Code: R07.89 - OTHER CHEST PAIN Comment: 07/30/19 - ED work unremarkable, no ST-T wave changes, troponin negative - Cardiology consult - Telemetry - Rule out cardiac etiology vs. other (2) Hypokalemia Current Visit: Yes Status: Acute Base Code: E87.6 - HYPOKALEMIA Comment: 07/30/19 - K 3.2 - PO and IV replacement - Symptoms resolved after IV hydration and potassium replacement (3) DVT prophylaxis Current Visit: Yes Status: Acute Base Code: Z29.9 - ENCOUNTER FOR PROPHYLACTIC MEASURES, UNSPECIFIED Comment: 07/30/19 - Eliquis mg BID - Frequent ambulation (4) Full code status Current Visit: Yes Status: Acute Base Code: Z78.9 - OTHER SPECIFIED HEALTH STATUS
--- NOTE | 2019-07-30 14:07 | Cardiology Consult ---
DATE OF CONSULTATION: 07/30/2019 Mr. Moreno is [id number] who presented to [facility] on 07/29/2019 with fast heart rate and chest discomfort. He reports at approximately 9:30 p.m. on 07/29/2019 he felt his heart rates were fast. He also developed some chest tightness and then presented to [facility]. His ECG demonstrated sinus tachycardia at a rate of [address], T-changes. He has a recent history of deep vein thrombosis diagnosed approximately eight weeks ago. There is no known inciting event for the deep vein thrombosis and he has not had a hypercoagulable work-up. He denies history of hypertension, hypercholesterolemia, or family history of premature coronary artery disease. He reports his father may have had viral cardiomyopathy and in his 50's. He had a 20-pack year history of tobacco use and quit two years ago. PAST MEDICAL HISTORY: Includes deep vein thrombosis. PAST SURGICAL HISTORY: None. MEDICATIONS: Apixaban 5 mg b.i.d. ALLERGIES: None. SOCIAL HISTORY: He is and has four children. He quit smoking two years ago, he had a 20-pack year history. Occasional marijuana use. FAMILY HISTORY: Father likely had viral cardiomyopathy and later of heart failure. PHYSICAL EXAMINATION: He is currently afebrile. Blood pressure is 140/70, pulse is 84, respirations 18. He is 99% on room air. Lungs are clear to auscultation. Cardiac exam is normal. Abdomen is soft. Extremities reveal no edema. LABORATORY PROFILE: His white count is 7.2, hemoglobin is 13.7, platelets are 239,000, sodium is 140, potassium is 3.2, BUN is 10, creatinine is 0.9, AST is 18, ALT is 21, Troponin is negative times two. IMPRESSION/PLAN: MR. MORENO IS A 39-YEAR-OLD GENTLEMAN WITH PALPITATIONS AND CHEST DISCOMFORT. HE HAS A HISTORY OF DEEP VEIN THROMBOSIS. HE IS ON APIXABAN 5 MG B.I.D. ECG DEMONSTRATED SINUS TACHYCARDIA WITH NO SIGNIFICANT ST, T-CHANGES. WE WILL RECOMMEND A BASELINE ECHOCARDIOGRAM DUE TO RECENT DIAGNOSIS OF DVT AND PALPITATIONS. WE WILL ASSESS HIS PULMONARY PRESSURES. WE WILL RECOMMEND TREADMILL STRESS TESTING INPATIENT VERSUS OUTPATIENT. IF HE HAS RECURRENCE OF PALPITATIONS, WE WILL LIKELY NEED EVENT MONITORING. JOB NUMBER: [id number] [facility]
--- NOTE | 2019-07-30 18:30 | Discharge Summary ---
Providers Discharge Summary Date: 07/30/19 Date of admission: 07/30/19 00:31 Expected Date of Discharge: 07/30/19 Attending physician: NARINDER CORRALES Primary care physician: TRE TAO D.O. Consults: Consult Orders 07/30/19 10:23 Consult - Cardiology NOW Consulting Provider: Dedrick Melgoza Physician Instructions: Reason For Exam: chest pain, Does pt have current coder?: Not Established Physical Exam - Vital Signs Vital Signs: Vital Signs - Last 24 Hrs Temp Pulse Resp BP Pulse Ox 07/30/19 17:30 98.6 F 57 L 16 116/77 96 07/30/19 10:32 99.1 F 59 L 16 125/74 96 07/30/19 09:00 59 L 16 07/30/19 05:00 97.7 F 86 18 127/70 96 07/30/19 01:32 97.7 F 84 18 124/72 97 07/30/19 00:03 84 18 140/70 99 07/29/19 23:24 88 20 151/75 100 07/29/19 22:47 98.8 F 100 H 28 H 141/75 98 - General General Appearance: Alert, Oriented x3, Cooperative, No acute distress Limitations: No limitations - Head Head exam: Atraumatic, Normocephalic, Normal inspection Head exam detail: negative: Abrasion, Contusion, Mcintyre's sign, General tenderness, Hematoma, Laceration - Eye Eye exam: Normal appearance. negative: Conjunctival injection, Periorbital swelling, Periorbital tenderness, Scleral icterus - ENT ENT exam: Mucous membranes moist Ear exam: negative: Auricular hematoma, Auricular trauma Nasal Exam: negative: Active bleeding, Discharge, Dried blood, Foreign body Mouth exam: negative: Drooling, Laceration, Muffled voice, Tongue elevation - Neck Neck exam: Normal inspection. negative: Meningismus, Tenderness - Respiratory Respiratory exam: Normal lung sounds bilaterally. negative: Rales, Respiratory distress, Rhonchi, Stridor - Cardiovascular Cardiovascular Exam: Normal rhythm, Normal heart sounds, Other (no chest wall tenderness to palpation) - GI/Abdominal GI/Abdominal exam: Soft. negative: Rebound, Rigid, Tenderness - Rectal Rectal exam: Deferred - exam: Deferred - Extremities Extremities exam: Normal inspection. negative: Pedal edema, Tenderness - Back Back exam: Denies: CVA tenderness (R), CVA tenderness (L) - Neurological Neurological exam: Alert, Normal gait, Oriented X3 - Psychiatric Psychiatric exam: Normal affect, Normal mood - Skin Skin exam: Normal color. negative: Abrasion Type of lesion: negative: abrasion Hospitalization - Hospitalization Admission Diagnosis: Atypical chest pain - Problem List/Discharge Diagnosis (1) Atypical chest pain Current Visit: Yes Status: Acute Base Code: R07.89 - OTHER CHEST PAIN Comment: 07/30/19 - ED work unremarkable, no ST-T wave changes, troponin negative - Cardiology consult- recommend outpatient treadmill stress test, did have echo done prior to discharge with no acute concerns - Telemetry - Rule out cardiac etiology vs. other (2) Hypokalemia Current Visit: Yes Status: Acute Base Code: E87.6 - HYPOKALEMIA Comment: 07/30/19 - K 3.2 - PO and IV replacement - Symptoms resolved after IV hydration and potassium replacement - WIll continue PO replacement as outpatient and recheck labs in 1 week with PCP (3) DVT prophylaxis Current Visit: Yes Status: Acute Base Code: Z29.9 - ENCOUNTER FOR PROPHYLACTIC MEASURES, UNSPECIFIED Comment: 07/30/19 - Eliquis mg BID - Frequent ambulation (4) Full code status Current Visit: Yes Status: Acute Base Code: Z78.9 - OTHER SPECIFIED HEALTH STATUS - Hospitalization Course Disposition: Home, Self-Care Hospital Course: 39 yo male presents to ED for evaluation of palpitations, chest discomfort that began this evening. Patient reports similar symptoms several weeks ago diagnosed as hypokalemia, denies fevers, chills, or recent illness. Patient does report recent diagnosis of DVT, was started on Eliquis approximately 8 weeks ago here in the ED. Patient states the 2 episodes have happened after starting Eliquis. Patient denies history of HTN, hypercholesterolemia, or previous CAD. Patient was given [employer] DES[employer] without improvement in hsi symptoms, was also given ASA 324 mg prior to arrival. He does have hx GERD, takes PPI intermittently. Has never had EGD. Reports last meal was his usual dinner meal of baked chicken, green beans and mashed potatoes. Does admit to family hx of father age 63 from CHF and mother has HTN and is alive. Does have 20 year cigarette use history and quit 2 years ago but does intermittently smoke marijuana. Did not 6 weeks ago and yesterday prior to the sudden onset of rapid heart beats, mid sternal chest pressure. Denies diaphoresis, radiating chest pain, syncope. ED work up unremarkable with the exception of K 3.2. No recent diarrhea or vomiting, diuretic use. PCP: Dr Tre Tao PAST MEDICAL/SURGICAL HISTORY Past Surgical History appendectomy PMH - Respiratory Hx Respiratory Disorders No PMH - Cardiovascular Hx Cardiovascular Disorders Yes Hx Deep Vein Thrombosis Yes: 06/2019 PMH - Neuro Hx Neurological Disorders No PMH - GI Hx Gastrointestinal Disorders No PMH - Hx Genitourinary Disorders No PMH - Endocrine Hx Endocrine Disorders No PMH - Musculoskeletal Hx Musculoskeletal Disorders No PMH - Psych Hx Psychiatric Problems No PMH - Hematology/Oncology Hx Hematology/Oncology No Disorders Laboratory Results WBC 7.2 K/uL (4.2-12.2) 07/29/19 22:50 RBC 4.61 M/uL (4.40-5.70) 07/29/19 22:50 Hgb 13.7 gm/dl (14.0-18.0) L 07/29/19 22:50 Hct 41.7 % (42.0-52.0) L 07/29/19 22:50 MCV 90.5 fl (81-97) 07/29/19 22:50 MCH 29.7 pg (27-33) 07/29/19 22:50 MCHC 32.9 g/dl (32-36) 07/29/19 22:50 RDW 12.7 % (11.5-14.5) 07/29/19 22:50 Plt Count 239 K/uL (130-400) 07/29/19 22:50 MPV 9.8 fl (7.4-10.4) 07/29/19 22:50 Gran % 46.9 % (47-80) L 07/29/19 22:50 Lymphocytes % 39.6 % (16-45) 07/29/19 22:50 Monocytes % 11.4 % (0-9) H 07/29/19 22:50 Eosinophils % 1.8 % (0-6) 07/29/19 22:50 Basophils % 0.3 % (0-6) 07/29/19 22:50 Absolute Neutrophils 3.37 07/29/19 22:50 ESR 2 mm/hr (0-15) 07/30/19 06:50 D-Dimer < 0.19 mg/L FEU (0-0.59) 07/29/19 22:50 Sodium 140 mmol/L (136-145) 07/29/19 22:50 Potassium 3.2 mmol/L (3.4-4.5) L 07/29/19 22:50 Chloride 99 mmol/L (98-107) 07/29/19 22:50 Carbon Dioxide 26.0 mmol/L (22-29) 07/29/19 22:50 Anion Gap 15.0 (7-16) 07/29/19 22:50 BUN 10 mg/dL (6-20) 07/29/19 22:50 Creatinine 0.9 mg/dL (0.7-1.2) 07/29/19 22:50 Estimated GFR > 60 mL/min 07/29/19 22:50 Random Glucose 138 mg/dL (74-109) H 07/29/19 22:50 Calcium 9.3 mg/dL (8.6-10.0) 07/29/19 22:50 Total Bilirubin 0.30 mg/dL (0.2-1.0) 07/29/19 22:50 AST 18 U/L (10.0-50.0) 07/29/19 22:50 ALT 21 U/L (<41) 07/29/19 22:50 Alkaline Phosphatase 84 U/L (40-129) 07/29/19 22:50 Troponin T < 0.010 ng/mL (0-0.010) 07/30/19 06:50 C-Reactive Protein 0.07 mg/dL (<0.5) 07/30/19 06:50 Total Protein 7.1 g/dL (6.6-8.7) 07/29/19 22:50 Albumin 4.5 g/dL (4.0-5.0) 07/29/19 22:50 Globulin 2.6 gm/dL (1.4-4.8) 07/29/19 22:50 Albumin/Globulin Ratio 1.7 (1.1-1.8) 07/29/19 22:50 Amylase 113 U/L (28-100) H 07/30/19 06:50 Lipase 183 U/L (13-60) H 07/30/19 06:50 Vital Signs - Last 24 Hrs Temp Pulse Resp BP Pulse Ox 07/30/19 10:32 99.1 F 59 L 16 125/74 96 07/30/19 09:00 59 L 16 07/30/19 05:00 97.7 F 86 18 127/70 96 07/30/19 01:32 97.7 F 84 18 124/72 97 07/30/19 00:03 84 18 140/70 99 07/29/19 23:24 88 20 151/75 100 07/29/19 22:47 98.8 F 100 H 28 H 141/75 98 07/30/19- Resting in bed comfortably, denies any chest pain, rapid heart rate. Reports feeling better after starting IVF with potassium. 07/30/19- Hospital course unremarkable. Chest pain, muscle stiffness and palpitations resolved after IV hydration and potassium replacement per patient report. He has not been work up by hematology for his newly diagnosed DVT. No personal history of heart disease. Cardiology consulted during visit. Echo completed with no acute concerns, did recommend treadmill stress test as oupatient. He also was experiencing epigastric discomfort and was recommended he take his PPI daily as may be contributing to his symptoms. Discharged home on oral potassium replacement, follow up with PCP in 1 week for repeat labs, follow up with cardiology as scheduled. Procedures: Imaging and X-Rays 07/29/19 23:25 CHEST 1 VIEW [RAD] Stat Cardiology Procedures 07/29/19 22:49 EKG NOW 07/30/19 01:32 Entry Level Recruiter .Continuous 07/30/19 12:31 Echo W/CF & Cardiac Doppler NOW Stress EKG/STD Treadmill NOW 07/30/19 16:19 Stress EKG/STD Treadmill ONCE Abnormal Labs: Abnormal Lab Results 07/29/19 07/29/19 07/30/19 Range/Units 22:50 22:50 06:50 Hgb 13.7 L (14.0-18.0) gm/dl Hct 41.7 L (42.0-52.0) % Gran % 46.9 L (47-80) % Monocytes % 11.4 H (0-9) % Potassium 3.2 L (3.4-4.5) mmol/L Random Glucose 138 H (74-109) mg/dL Amylase (28-100) U/L Lipase 183 H (13-60) U/L 07/30/19 Range/Units 06:50 Hgb (14.0-18.0) gm/dl Hct (42.0-52.0) % Gran % (47-80) % Monocytes % (0-9) % Potassium (3.4-4.5) mmol/L Random Glucose (74-109) mg/dL Amylase 113 H (28-100) U/L Lipase (13-60) U/L Condition at Discharge: (2) Stable Discharge Medications - Discharge Medications Prescriptions: Potassium Chloride [Klor-Con] 10 meq PO BID 60 Days #60 tablet. Home Medications: Ambulatory Orders Apixaban [Eliquis] 5 mg PO BID #74 tablet 06/03/19 [Last Taken 07/28/19] Omeprazole [Prilosec] 20 mg PO DAILY 06/03/19 [Last Taken 06/03/19] Potassium Chloride [Klor-Con] 10 meq PO BID 60 Days #60 tablet. 07/30/19 [Last Taken Unknown] Discharge Plan - Discharge Instructions Activity at Discharge: Increase Activity as Tolerated Diet at Discharge: Advance to Usual Diet Instructions: Chest Pain (DC), Hypokalemia (DC) Additional Instructions: Activity: TOLERATED Diet: TOLERATED Consults: [] Follow Up: []WITH DR MELGOZA SCHEDULED, FOLLOW UP WITH FAMILY DR SCHEDULED Dressing/Wound Care: (Type) (Change) Additional: [] Follow up appointment with Dr. Tao on August 05 at 10:00am. . OUT PT STRESS TEST [facility] 08/06/2019 AT 12:45 TAKE POTASSIUM PRESCRIPTION ORDERED Quality Measures - Quality Measures Quality Measures: Documentation of Current Medications in Medical Record, Screening for High Blood Pressure and F/U Documented - Current Medications Quality Measure: Measure #130: Documentation of Current Medications Documentation of Current Medications: <Current Medications Documented/Reviewed> [[id number]] - Blood Pressure Screening Quality Measure: Screening for High Blood Pressure and Follow-Up Documented Does Patient Have Any of the Following: No Blood Pressure Classification: Normal BP Reading Systolic Measurement: 116 Diastolic Measurement: 77 Screening for High Blood Pressure: < Normal BP, F/U Not Required > [[id number]] - Elder Abuse Suspicion Index EASI Reference Information: Stacy PERSAUD, Letty Youssef, Kamini Montalvo, Columba Vargas.Development and validation of a tool to assist physicians identification of elder abuse: The Elder Abuse Suspicion Index (EASI ). Journal of Elder Abuse and Neglect, 2008; 20 (3): 276-300.
[2019-07-30] MEDS ORDERED: POTASSIUM CHLORIDE 10 MEQ TAB PO SCH (22:00)
== END 2019-07-30 17:30 | disposition home or self-care (01) ==
LOC: ER 22:44 → MEDSURG 07-30 00:31
PROVIDERS: ADMIT Internal Medicine; ATTEND Internal Medicine
DX: R07.9 Chest pain, unspecified (principal); E87.6 Hypokalemia; Z86.718 Personal history of other venous thrombosis and embolism; Z79.01 Long term (current) use of anticoagulants
CPT/HCPCS: 82150; 83690; 85025; 85651; 86140; 80053; 84484 ×2; 85379; 71045; 93005; 93306; G0378; J2405; J3490; 93010; 96374; 96375; 99236; 99285; J7030